=== PATIENT | female | born 1945 | race Hispanic/Latino ===

== ENCOUNTER 2017-09-18 08:52 | Inpatient (IN) | payer MEDICARE, OTHER ==
[~2017-09-18] VITALS: Ht 149.9 cm; Wt 64.5 kg
[~2017-09-18 08:52] MED LIST: ASPI-1005 PO; ATOR20TA65 PO; CALC600T12 PO; CARV3.1262 PO; DARI15TA7 PO; DULO30CA51 PO; FURO20TA6 PO; IBAN150T8 PO; LISI-613 PO; PANT40TA25 PO; PREG100C PO; TYL3 PO
[2017-09-18 09:43] LABS: BASOPHILS % (AUTO) 0.9 % (0.0-5.0); EOSINOPHILS % (AUTO) 2.5 % (0.0-8.0); HEMATOCRIT 34.1 % (36-48); LYMPHOCYTES % (AUTO) 18.8 % (21.0-51.0); MEAN CORPUSCULAR HEMOGLOBIN 30.6 pg (27.0-33.0); MEAN CORPUSCULAR HGB CONC 34.1 g/dL (32.0-36.0); MEAN CORPUSCULAR VOLUME 89.7 fL (79-99); MONOCYTES % (AUTO) 9.2 % (3.0-13.0); NEUTROPHILS % (AUTO) 68.6 % (40.0-77.0); PLATELET COUNT (AUTO) 436 K/uL (130-400); RED CELL DISTRIBUTION WIDTH 14.9 % (11.0-15.5)
[2017-09-18 09:57] LABS: CREATININE 0.8 mg/dL (0.5-1.5); POTASSIUM 3.5 mmol/L (3.5-5.1)
[2017-09-18 10:01] LABS: INR 0.99 (0.85-1.15); PARTIAL THROMBOPLASTIN TIME 30.8 SEC (26.3-35.5); PROTHROMBIN TIME 10.4 SEC (9.6-11.6)
[2017-09-18 10:15] LABS: APPEARANCE,URINE Clear (CLEAR); BILIRUBIN,URINE Negative (NEGATIVE); COLOR,URINE Yellow (YELLOW); GLUCOSE, URINE (UA) Negative (NEGATIVE); KETONES,URINE Negative (NEGATIVE); LEUKOCYTE ESTERASE ,URINE Negative (NEGATIVE); NITRATE,URINE Negative (NEGATIVE); OCCULT BLOOD,URINE Negative (NEGATIVE); PH,URINE 5.5 (5.0-8.0); PROTEIN,URINE Negative (NEGATIVE)
[2017-09-18] MEDS ORDERED: LACTULOSE 20 GM/30 ML UDCUP PO PRN (11:45)
[2017-09-18] MEDS ORDERED: MAG HYDROX/AL HYDROX/SIMETH ES 30 ML SUSP UDCUP PO PRN (11:45)
[2017-09-18] MEDS ORDERED: GUAIFENESIN-DM 200/20 MG 10 ML PO PRN (11:45)
[2017-09-18] MEDS ORDERED: ACETAMINOPHEN 325 MG TAB PO PRN (11:45)
[2017-09-18] MEDS ORDERED: ONDANSETRON HCL 4 MG/2 ML VIAL IV PRN (11:45)
[2017-09-18] MEDS ORDERED: FUROSEMIDE 10 MG/ML 4ML VIAL IV SCH (11:45)
[2017-09-18] MEDS ORDERED: ACETAMINOPHEN-CODEINE 300/30MG TAB PO PRN (11:45)
[2017-09-18] MEDS: LEVOFLOXACIN 500 MG/D5W 100 ML 100 ML IV SCH (11:45)
[2017-09-18] MEDS ORDERED: ACETAMINOPHEN-CODEINE 300/30MG TAB ONE (12:25)
[2017-09-18] MEDS ORDERED: LEVOFLOXACIN 500 MG/D5W 100 ML 100 ML ONE (12:25)
[2017-09-18] MEDS ORDERED: FUROSEMIDE 10 MG/ML 4ML VIAL ONE (12:25)
[2017-09-18] MEDS ORDERED: IPRATROPIUM/ALBUTEROL SULFATE 3 ML SOLUTION IH ONE (13:08)
[2017-09-18] MEDS: IPRATROPIUM/ALBUTEROL SULFATE 3 ML SOLUTION IH SCH ×3 (13:12→23:47)
[2017-09-18 17:08] VITALS: BP 117/45
[2017-09-18 17:29] LABS: SPECIMENTYPE,BODY FLUID PLEURAL
[2017-09-18 17:30] LABS: APPEARANCE BODY FLUID SLIGHTLY CLOUDY (CLEAR); BODY FLUID RBC 2775 /cu. mm.; BODY FLUID WBC 1145 /cu. mm.; COLOR,BODY FLUID DARK YELLOW (LT YELLOW); TOTAL VOLUME,BODY FLUID 1300 mL
[2017-09-18 17:33] LABS: BF LYMPHOCYTE 68 %
[2017-09-18 22:46] VITALS: BP 126/60
[2017-09-18 23:59] VITALS: BP 124/59
[2017-09-19] MEDS: FAMOTIDINE/PF 20 MG/2 ML VIAL IV SCH ×3 (00:05→22:01)
[2017-09-19] MEDS: ACETAMINOPHEN 325 MG TAB PO PRN ×2 (00:05→17:43)
[2017-09-19] MEDS ORDERED: POTASSIUM CHLORIDE 20MEQ/100ML 100 ML IV PRN (00:30)
[2017-09-19] MEDS ORDERED: POTASSIUM CHLORIDE 10% ELIXIR 20 MEQ/15 ML UDCUP PO PRN (00:30)
[2017-09-19] MEDS ORDERED: LIDOCAINE HCL-MPF 1% 2ML VIAL IVP PRN (00:30)
[2017-09-19] MEDS ORDERED: POTASSIUM CHLORIDE 10 MEQ/TAB.SA PO ONE ×6 (00:31→06:02)
[2017-09-19 03:56] VITALS: BP 107/64
[2017-09-19 05:41] LABS: HEMATOCRIT 33.7 % (36-48); MEAN CORPUSCULAR HEMOGLOBIN 30.2 pg (27.0-33.0); MEAN CORPUSCULAR HGB CONC 33.6 g/dL (32.0-36.0); MEAN CORPUSCULAR VOLUME 89.8 fL (79-99); PLATELET COUNT (AUTO) 417 K/uL (130-400); RED BLOOD CELL COUNT(AUTO) 3.75 MIL/uL (4.00-5.50); RED CELL DISTRIBUTION WIDTH 14.7 % (11.0-15.5); WHITE BLOOD COUNT (AUTO) 6.4 K/uL (4.8-10.8)
[2017-09-19 05:47] LABS: CREATININE 0.8 mg/dL (0.5-1.5); POTASSIUM 3.8 mmol/L (3.5-5.1)
[2017-09-19 05:57] LABS: B-TYPE NATRIURETIC PEPTIDE 58 pg/mL (0-100)
[2017-09-19] MEDS ORDERED: FUROSEMIDE 10 MG/ML 4ML VIAL IV SCH (06:00)
[2017-09-19 07:00] VITALS: BP 114/65
[2017-09-19] MEDS: IPRATROPIUM/ALBUTEROL SULFATE 3 ML SOLUTION IH SCH ×3 (07:04→19:40)
[2017-09-19] MEDS: CALCIUM CARBONATE 500 MG TABLET PO SCH (10:18)
[2017-09-19] MEDS: ASPIRIN 81MG TAB.CHEW PO SCH (10:18)
[2017-09-19] MEDS: LISINOPRIL 20 MG TABLET PO SCH (10:19)
[2017-09-19] MEDS: DULOXETINE HCL 30 MG CAP PO SCH (10:19)
[2017-09-19] MEDS: POTASSIUM CHLORIDE 20 MEQ ERTAB PO PRN ×2 (10:19→16:29)
[2017-09-19] MEDS: CARVEDILOL 3.125 MG TABLET PO SCH (10:19)
[2017-09-19 11:00] VITALS: BP 126/58
[2017-09-19] MEDS: LEVOFLOXACIN 500 MG/D5W 100 ML 100 ML IV SCH (12:06)
[2017-09-19 16:00] VITALS: BP 91/56
[2017-09-19] MEDS: FUROSEMIDE 10 MG/ML 2ML VIAL IVP SCH (17:36)
[2017-09-19 19:39] VITALS: BP 99/54
[2017-09-19] MEDS: ATORVASTATIN CALCIUM 20 MG TABLET PO SCH (22:02)
[2017-09-19] MEDS: PREGABALIN 100 MG CAPSULE PO SCH (22:02)
[2017-09-19 23:54] VITALS: BP 101/54
[2017-09-20] MEDS: CARVEDILOL 3.125 MG TABLET PO SCH ×3 (00:06→23:31)
[2017-09-20] MEDS: IPRATROPIUM/ALBUTEROL SULFATE 3 ML SOLUTION IH SCH ×4 (01:31→19:01)
[2017-09-20 03:47] VITALS: BP 134/59
[2017-09-20 04:16] LABS: HEMATOCRIT 35.5 % (36-48); MEAN CORPUSCULAR HEMOGLOBIN 30.1 pg (27.0-33.0); MEAN CORPUSCULAR HGB CONC 33.4 g/dL (32.0-36.0); MEAN CORPUSCULAR VOLUME 90.4 fL (79-99); PLATELET COUNT (AUTO) 502 K/uL (130-400); RED BLOOD CELL COUNT(AUTO) 3.92 MIL/uL (4.00-5.50); RED CELL DISTRIBUTION WIDTH 15.2 % (11.0-15.5); WHITE BLOOD COUNT (AUTO) 6.8 K/uL (4.8-10.8)
[2017-09-20 04:27] LABS: CREATININE 0.9 mg/dL (0.5-1.5); POTASSIUM 4.4 mmol/L (3.5-5.1)
[2017-09-20] MEDS: FUROSEMIDE 10 MG/ML 2ML VIAL IVP SCH ×2 (06:23→16:48)
[2017-09-20 07:00] VITALS: BP 124/57
[2017-09-20] MEDS: DULOXETINE HCL 30 MG CAP PO SCH ×2 (09:43→21:00)
[2017-09-20] MEDS: FAMOTIDINE/PF 20 MG/2 ML VIAL IV SCH ×2 (09:43→21:26)
[2017-09-20] MEDS: LISINOPRIL 20 MG TABLET PO SCH (09:43)
[2017-09-20] MEDS: ASPIRIN 81MG TAB.CHEW PO SCH (09:43)
[2017-09-20] MEDS: CALCIUM CARBONATE 500 MG TABLET PO SCH (09:43)
[2017-09-20 11:00] VITALS: BP 96/51
[2017-09-20] MEDS: LEVOFLOXACIN 500 MG/D5W 100 ML 100 ML IV SCH (13:17)
[2017-09-20 16:00] VITALS: BP 92/46
[2017-09-20] MEDS ORDERED: TRAM50TA4 PO (18:04)
[2017-09-20] MEDS ORDERED: DULO30CA51 PO (18:07)
[2017-09-20 19:37] VITALS: BP 104/53
[2017-09-20] MEDS: SPIRONOLACTONE 25 MG TAB PO SCH (21:26)
[2017-09-20] MEDS: PREGABALIN 100 MG CAPSULE PO SCH (21:27)
[2017-09-20] MEDS: ATORVASTATIN CALCIUM 20 MG TABLET PO SCH (21:27)
[2017-09-20 22:47] VITALS: BP 105/64
[2017-09-21] MEDS: IPRATROPIUM/ALBUTEROL SULFATE 3 ML SOLUTION IH SCH ×4 (01:01→19:25)
[2017-09-21 04:03] VITALS: BP 116/66
[2017-09-21 04:39] LABS: HEMATOCRIT 36.7 % (36-48); MEAN CORPUSCULAR HEMOGLOBIN 29.2 pg (27.0-33.0); MEAN CORPUSCULAR HGB CONC 32.3 g/dL (32.0-36.0); MEAN CORPUSCULAR VOLUME 90.5 fL (79-99); PLATELET COUNT (AUTO) 541 K/uL (130-400); RED BLOOD CELL COUNT(AUTO) 4.05 MIL/uL (4.00-5.50); RED CELL DISTRIBUTION WIDTH 14.8 % (11.0-15.5); WHITE BLOOD COUNT (AUTO) 8.1 K/uL (4.8-10.8)
[2017-09-21 04:47] LABS: CREATININE 1.2 mg/dL (0.5-1.5)
[2017-09-21] MEDS: FUROSEMIDE 10 MG/ML 2ML VIAL IVP SCH (06:01)
[2017-09-21 07:36] VITALS: BP 111/58
[2017-09-21] MEDS: CARVEDILOL 3.125 MG TABLET PO SCH ×2 (07:54→21:37)
[2017-09-21] MEDS: CALCIUM CARBONATE 500 MG TABLET PO SCH (07:55)
[2017-09-21] MEDS: SPIRONOLACTONE 25 MG TAB PO SCH ×2 (07:55→21:37)
[2017-09-21] MEDS: ASPIRIN 81MG TAB.CHEW PO SCH (07:55)
[2017-09-21] MEDS: FAMOTIDINE/PF 20 MG/2 ML VIAL IV SCH ×2 (09:53→21:36)
[2017-09-21] MEDS: LEVOFLOXACIN 500 MG/D5W 100 ML 100 ML IV SCH (10:05)
[2017-09-21 11:12] VITALS: BP 114/73
[2017-09-21] MEDS ORDERED: FUROSEMIDE 20 MG TABLET PO SCH (13:30)
[2017-09-21 16:18] VITALS: BP 98/51
[2017-09-21 19:35] VITALS: BP 105/57
[2017-09-21] MEDS: PREGABALIN 100 MG CAPSULE PO SCH (21:36)
[2017-09-21] MEDS: DULOXETINE HCL 30 MG CAP PO SCH (21:36)
[2017-09-21] MEDS: ATORVASTATIN CALCIUM 20 MG TABLET PO SCH (21:38)
[2017-09-21 23:33] VITALS: BP 106/59
[2017-09-22] VITALS (7 sets, daily range): BP systolic 105–131; BP diastolic 49–60
[2017-09-22] MEDS: IPRATROPIUM/ALBUTEROL SULFATE 3 ML SOLUTION IH SCH ×4 (00:37→19:04)
[2017-09-22 04:08] LABS: HEMATOCRIT 33.5 % (36-48); MEAN CORPUSCULAR HEMOGLOBIN 29.7 pg (27.0-33.0); MEAN CORPUSCULAR HGB CONC 33.4 g/dL (32.0-36.0); MEAN CORPUSCULAR VOLUME 89.1 fL (79-99); PLATELET COUNT (AUTO) 526 K/uL (130-400); RED BLOOD CELL COUNT(AUTO) 3.76 MIL/uL (4.00-5.50); RED CELL DISTRIBUTION WIDTH 15.4 % (11.0-15.5); WHITE BLOOD COUNT (AUTO) 8.3 K/uL (4.8-10.8)
[2017-09-22 04:22] LABS: CREATININE 0.9 mg/dL (0.5-1.5); POTASSIUM 3.7 mmol/L (3.5-5.1)
[2017-09-22 04:46] LABS: B-TYPE NATRIURETIC PEPTIDE 29 pg/mL (0-100)
[2017-09-22] MEDS: SPIRONOLACTONE 25 MG TAB PO SCH ×2 (07:12→20:42)
[2017-09-22] MEDS: LEVOFLOXACIN 500 MG/D5W 100 ML 100 ML IV SCH (07:13)
[2017-09-22] MEDS: CALCIUM CARBONATE 500 MG TABLET PO SCH (07:13)
[2017-09-22] MEDS: FUROSEMIDE 40 MG TABLET PO SCH (07:13)
[2017-09-22] MEDS: ASPIRIN 81MG TAB.CHEW PO SCH (07:13)
[2017-09-22] MEDS: FAMOTIDINE/PF 20 MG/2 ML VIAL IV SCH ×2 (07:13→20:43)
[2017-09-22] MEDS: CARVEDILOL 3.125 MG TABLET PO SCH ×2 (07:13→20:42)
[2017-09-22] MEDS ORDERED: FUROSEMIDE 20 MG TABLET PO SCH (09:00)
[2017-09-22] MEDS: DULOXETINE HCL 30 MG CAP PO SCH (20:42)
[2017-09-22] MEDS: ATORVASTATIN CALCIUM 20 MG TABLET PO SCH (20:42)
[2017-09-22] MEDS: PREGABALIN 100 MG CAPSULE PO SCH (20:42)
[2017-09-23] MEDS: IPRATROPIUM/ALBUTEROL SULFATE 3 ML SOLUTION IH SCH ×3 (00:44→10:59)
[2017-09-23 03:48] VITALS: BP 99/58
[2017-09-23 04:46] LABS: POTASSIUM 3.7 mmol/L (3.5-5.1)
[2017-09-23] MEDS ORDERED: FURO40TA7 PO (07:20)
[2017-09-23] MEDS ORDERED: POTA8TAB7 PO (07:20)
[2017-09-23 07:40] VITALS: BP 108/46
[2017-09-23] MEDS ORDERED: FAMOTIDINE 20MG TAB 20 MG TAB PO SCH (09:00)
[2017-09-23] MEDS: CARVEDILOL 3.125 MG TABLET PO SCH (09:58)
[2017-09-23] MEDS: CALCIUM CARBONATE 500 MG TABLET PO SCH (09:58)
[2017-09-23] MEDS: SPIRONOLACTONE 25 MG TAB PO SCH (09:59)
[2017-09-23] MEDS: FUROSEMIDE 40 MG TABLET PO SCH (09:59)
[2017-09-23] MEDS: POTASSIUM CHLORIDE 20 MEQ ERTAB PO PRN (09:59)
[2017-09-23] MEDS: ASPIRIN 81MG TAB.CHEW PO SCH (09:59)
[2017-09-23 11:17] VITALS: BP 140/97
[2017-09-23] MEDS: LEVOFLOXACIN 500 MG/D5W 100 ML 100 ML IV SCH (12:10)
[2017-09-23 12:11] VITALS: BP 99/50
== END 2017-09-23 15:49 | disposition home or self-care (01) | DRG 291 ==
LOC: EDH 08:52 → EDHIP 11:31 → 2AH 22:31
PROVIDERS: ADMIT Family Medicine; ATTEND Family Medicine
PROC: 0W9B3ZZ Drainage of Left Pleural Cavity, Percutaneous Approach (ICD-10-PCS; principal; 2017-09-18)
PROC: 0W9B30Z Drainage of Left Pleural Cavity with Drainage Device, Percutaneous Approach (ICD-10-PCS; 2017-09-19)
DX: I11.0 Hypertensive heart disease with heart failure (principal); J81.0 Acute pulmonary edema; R06.03 Acute respiratory distress; J90 Pleural effusion, not elsewhere classified; D62 Acute posthemorrhagic anemia; I50.23 Acute on chronic systolic (congestive) heart failure; Z95.1 Presence of aortocoronary bypass graft; K21.9 Gastro-esophageal reflux disease without esophagitis; M79.7 Fibromyalgia; E78.5 Hyperlipidemia, unspecified; I25.10 Atherosclerotic heart disease of native coronary artery without angina pectoris; I10 Essential (primary) hypertension; Z88.0 Allergy status to penicillin; Z79.899 Other long term (current) drug therapy
CPT/HCPCS: 32551; 32555; 36415; 71045; 71046; 71250; 80048; 81003; 82945; 83615; 83880; 83986; 84157; 84484; 85025; 85027; 85610; 85730; 87071; 87205; 89051; 93005; 93306; 94640; 94664; J1940; J1956; J3490

== ENCOUNTER 2017-09-25 21:59 | Inpatient (IN) | payer MEDICARE, OTHER ==
[~2017-09-25] VITALS: Ht 149.9 cm; Wt 59.6 kg
[~2017-09-25 21:59] MED LIST changes: -FURO20TA6 PO; +FURO40TA7 PO; +POTA8TAB7 PO; +TRAM50TA4 PO
[2017-09-25 23:06] LABS: BILIRUBIN,URINE Negative (NEGATIVE); COLOR,URINE Yellow (YELLOW); GLUCOSE, URINE (UA) Negative (NEGATIVE); KETONES,URINE Negative (NEGATIVE); LEUKOCYTE ESTERASE ,URINE Negative (NEGATIVE); NITRATE,URINE Negative (NEGATIVE); OCCULT BLOOD,URINE Negative (NEGATIVE); PROTEIN,URINE Negative (NEGATIVE); UROBILINOGEN,URINE 0.2 mg/dL (0.2-1.0)
[2017-09-25 23:10] LABS: APPEARANCE,URINE CLEAR (CLEAR)
[2017-09-25 23:12] LABS: CREATININE 1.3 mg/dL (0.5-1.5); POTASSIUM 4.3 mmol/L (3.5-5.1)
[2017-09-25 23:13] LABS: BASOPHILS % (AUTO) 1.3 % (0.0-5.0); EOSINOPHILS % (AUTO) 1.5 % (0.0-8.0); HEMATOCRIT 36.2 % (36-48); LYMPHOCYTES % (AUTO) 43.8 % (21.0-51.0); MEAN CORPUSCULAR HEMOGLOBIN 29.5 pg (27.0-33.0); MEAN CORPUSCULAR HGB CONC 33.7 g/dL (32.0-36.0); MEAN CORPUSCULAR VOLUME 87.8 fL (79-99); MONOCYTES % (AUTO) 7.7 % (3.0-13.0); NEUTROPHILS % (AUTO) 45.7 % (40.0-77.0); PLATELET COUNT (AUTO) 555 K/uL (130-400); RED BLOOD CELL COUNT(AUTO) 4.12 MIL/uL (4.00-5.50); RED CELL DISTRIBUTION WIDTH 15.8 % (11.0-15.5); WHITE BLOOD COUNT (AUTO) 8.4 K/uL (4.8-10.8)
[2017-09-26] MEDS ORDERED: CEFTRIAXONE SODIUM 1 GM ONE (00:06)
[2017-09-26] MEDS ORDERED: ACETAMINOPHEN 325 MG TAB ONE (00:06)
[2017-09-26] MEDS ORDERED: DEXTROSE 50%-WATER 50 ML DISP.SYRIN IV PRN (02:45)
[2017-09-26] MEDS ORDERED: LIDOCAINE HCL-MPF 1% 2ML VIAL IVP PRN (02:45)
[2017-09-26] MEDS ORDERED: POTASSIUM CHLORIDE 20MEQ/100ML 100 ML IV PRN (02:45)
[2017-09-26] MEDS ORDERED: MORPHINE SULFATE 2 MG/ML 1ML SYG IVP PRN ×2 (02:45)
[2017-09-26] MEDS ORDERED: LACTULOSE 20 GM/30 ML UDCUP PO PRN (02:45)
[2017-09-26] MEDS ORDERED: HYDRALAZINE HCL 20 MG/ML VIAL IV PRN (02:45)
[2017-09-26] MEDS ORDERED: ONDANSETRON HCL 4 MG/2 ML VIAL IVP PRN (02:45)
[2017-09-26] MEDS ORDERED: GLUCAGON 1MG KIT 1 MG ML IM PRN (02:45)
[2017-09-26] MEDS ORDERED: ACETAMINOPHEN 325 MG TAB PO PRN (02:45)
[2017-09-26] MEDS: AZITHROMYCIN 500MG+NS 250ML 250 ML IV SCH (03:00)
[2017-09-26 04:09] LABS: HEMATOCRIT 35.2 % (36-48); MEAN CORPUSCULAR HEMOGLOBIN 29.6 pg (27.0-33.0); MEAN CORPUSCULAR HGB CONC 33.4 g/dL (32.0-36.0); MEAN CORPUSCULAR VOLUME 88.6 fL (79-99); PLATELET COUNT (AUTO) 529 K/uL (130-400); RED BLOOD CELL COUNT(AUTO) 3.97 MIL/uL (4.00-5.50); RED CELL DISTRIBUTION WIDTH 15.8 % (11.0-15.5); WHITE BLOOD COUNT (AUTO) 8.2 K/uL (4.8-10.8)
[2017-09-26 04:19] LABS: CREATININE 1.2 mg/dL (0.5-1.5); POTASSIUM 3.6 mmol/L (3.5-5.1)
[2017-09-26 04:46] LABS: CREATINE KINASE MB < 0.5 ng/mL (0.5-3.6); CREATINE KINASE, TOTAL 27 U/L (21-232); MYOGLOBIN 37 ng/mL (10-92); TROPONIN I < 0.04 ng/mL (0.00-0.06)
[2017-09-26 05:09] LABS: B-TYPE NATRIURETIC PEPTIDE 30 pg/mL (0-100)
[2017-09-26] MEDS ORDERED: IPRATROPIUM/ALBUTEROL SULFATE 3 ML SOLUTION IH ONE ×2 (06:46→10:26)
[2017-09-26] MEDS: IPRATROPIUM/ALBUTEROL SULFATE 3 ML SOLUTION IH SCH ×4 (06:48→23:10)
[2017-09-26] MEDS ORDERED: INSULIN HUMULIN R 100 UNIT/ML 3ML SQ SCH (07:30)
[2017-09-26] MEDS ORDERED: AZITHROMYCIN 500MG+NS 250ML 250 ML IV ONE (08:26)
[2017-09-26] MEDS ORDERED: FAMOTIDINE 20MG TAB 20 MG TAB ONE (08:27)
[2017-09-26] MEDS: FAMOTIDINE 20MG TAB 20 MG TAB PO SCH ×2 (09:00→20:03)
[2017-09-26 12:30] VITALS: BP 97/56
[2017-09-26 16:10] VITALS: BP 101/45
[2017-09-26] MEDS: ATORVASTATIN CALCIUM 20 MG TABLET PO SCH (20:03)
[2017-09-26] MEDS: CARVEDILOL 3.125 MG TABLET PO SCH (20:04)
[2017-09-26] MEDS: DULOXETINE HCL 30 MG CAP PO SCH (20:04)
[2017-09-26 20:05] VITALS: BP 113/64
[2017-09-26 23:43] VITALS: BP 121/61
[2017-09-27] MEDS ORDERED: CEFTRIAXONE SODIUM 1 GM ONE (00:13)
[2017-09-27] MEDS: CEFTRIAXONE 1GM/D5W 50ML 50 ML IV SCH (00:13)
[2017-09-27] MEDS: AZITHROMYCIN 500MG+NS 250ML 250 ML IV SCH (03:04)
[2017-09-27 03:38] VITALS: BP 121/64
[2017-09-27 04:20] LABS: HEMATOCRIT 33.9 % (36-48); MEAN CORPUSCULAR HEMOGLOBIN 29.5 pg (27.0-33.0); MEAN CORPUSCULAR HGB CONC 33.2 g/dL (32.0-36.0); MEAN CORPUSCULAR VOLUME 88.8 fL (79-99); PLATELET COUNT (AUTO) 496 K/uL (130-400); RED BLOOD CELL COUNT(AUTO) 3.82 MIL/uL (4.00-5.50); RED CELL DISTRIBUTION WIDTH 15.8 % (11.0-15.5); WHITE BLOOD COUNT (AUTO) 6.6 K/uL (4.8-10.8)
[2017-09-27 04:34] LABS: CREATININE 0.9 mg/dL (0.5-1.5); POTASSIUM 4.3 mmol/L (3.5-5.1)
[2017-09-27] MEDS: IPRATROPIUM/ALBUTEROL SULFATE 3 ML SOLUTION IH SCH ×3 (06:12→18:29)
[2017-09-27 07:18] VITALS: BP 108/47
[2017-09-27] MEDS: FUROSEMIDE 40 MG TABLET PO SCH (08:42)
[2017-09-27] MEDS: FAMOTIDINE 20MG TAB 20 MG TAB PO SCH ×2 (08:42→21:29)
[2017-09-27] MEDS: ASPIRIN 81MG TAB.CHEW PO SCH (08:42)
[2017-09-27] MEDS: CARVEDILOL 3.125 MG TABLET PO SCH ×2 (08:43→21:29)
[2017-09-27] MEDS ORDERED: NON-FORMULARY MEDICATION 1 EACH (Potassium Chloride 8 MEQ) PO SCH (09:00)
[2017-09-27] MEDS: ENOXAPARIN SODIUM 40 MG/0.4 ML SYRINGE SQ SCH (09:49)
[2017-09-27 11:31] VITALS: BP 98/43
[2017-09-27] MEDS: CEFTRIAXONE SODIUM 1 GM IVP SCH (13:04)
[2017-09-27 16:22] VITALS: BP 109/47
[2017-09-27 20:11] VITALS: BP 101/64
[2017-09-27] MEDS: DULOXETINE HCL 30 MG CAP PO SCH (21:29)
[2017-09-27] MEDS: ATORVASTATIN CALCIUM 20 MG TABLET PO SCH (21:29)
[2017-09-27 23:09] VITALS: BP 120/58
[2017-09-28] MEDS: IPRATROPIUM/ALBUTEROL SULFATE 3 ML SOLUTION IH SCH ×4 (00:23→18:58)
[2017-09-28] MEDS: CEFTRIAXONE 1GM/D5W 50ML 50 ML IV SCH ×2 (00:24→23:45)
[2017-09-28] MEDS: AZITHROMYCIN 500MG+NS 250ML 250 ML IV SCH (03:06)
[2017-09-28 03:46] VITALS: BP 120/58
[2017-09-28 04:04] LABS: HEMATOCRIT 35.7 % (36-48); MEAN CORPUSCULAR HEMOGLOBIN 29.5 pg (27.0-33.0); MEAN CORPUSCULAR HGB CONC 33.2 g/dL (32.0-36.0); MEAN CORPUSCULAR VOLUME 88.9 fL (79-99); PLATELET COUNT (AUTO) 508 K/uL (130-400); RED BLOOD CELL COUNT(AUTO) 4.02 MIL/uL (4.00-5.50); RED CELL DISTRIBUTION WIDTH 15.3 % (11.0-15.5); WHITE BLOOD COUNT (AUTO) 7.4 K/uL (4.8-10.8)
[2017-09-28 04:08] LABS: CREATININE 0.9 mg/dL (0.5-1.5); POTASSIUM 3.2 mmol/L (3.5-5.1)
[2017-09-28] MEDS: POTASSIUM CHLORIDE 10% ELIXIR 20 MEQ/15 ML UDCUP PO PRN ×3 (05:30→12:10)
[2017-09-28 07:25] VITALS: BP 127/61
[2017-09-28] MEDS: FAMOTIDINE 20MG TAB 20 MG TAB PO SCH ×2 (09:07→20:36)
[2017-09-28] MEDS: FUROSEMIDE 40 MG TABLET PO SCH (09:07)
[2017-09-28] MEDS: ASPIRIN 81MG TAB.CHEW PO SCH (09:07)
[2017-09-28] MEDS: CARVEDILOL 3.125 MG TABLET PO SCH ×2 (09:07→20:37)
[2017-09-28] MEDS: ENOXAPARIN SODIUM 40 MG/0.4 ML SYRINGE SQ SCH (09:08)
[2017-09-28 11:21] VITALS: BP 108/65
[2017-09-28] MEDS: CEFTRIAXONE SODIUM 1 GM IVP SCH (12:10)
[2017-09-28 16:19] VITALS: BP 129/68
[2017-09-28 19:29] VITALS: BP 122/43
[2017-09-28] MEDS: DULOXETINE HCL 30 MG CAP PO SCH (20:36)
[2017-09-28] MEDS: ATORVASTATIN CALCIUM 20 MG TABLET PO SCH (20:36)
[2017-09-28 23:16] VITALS: BP 155/58
[2017-09-29] MEDS: IPRATROPIUM/ALBUTEROL SULFATE 3 ML SOLUTION IH SCH ×2 (01:32→05:57)
[2017-09-29] MEDS: AZITHROMYCIN 500MG+NS 250ML 250 ML IV SCH (02:41)
[2017-09-29 04:02] VITALS: BP 126/72
[2017-09-29 04:04] LABS: CREATININE 0.8 mg/dL (0.5-1.5); POTASSIUM 3.3 mmol/L (3.5-5.1)
[2017-09-29] MEDS: POTASSIUM CHLORIDE 10% ELIXIR 20 MEQ/15 ML UDCUP PO PRN (05:31)
[2017-09-29] MEDS ORDERED: AMOX-426 PO (07:50)
[2017-09-29] MEDS ORDERED: ALBUHFA IH (07:50)
[2017-09-29 08:01] VITALS: BP 124/59
[2017-09-29] MEDS: ASPIRIN 81MG TAB.CHEW PO SCH (09:32)
[2017-09-29] MEDS: FAMOTIDINE 20MG TAB 20 MG TAB PO SCH (09:32)
[2017-09-29] MEDS: FUROSEMIDE 40 MG TABLET PO SCH (09:32)
[2017-09-29] MEDS: CARVEDILOL 3.125 MG TABLET PO SCH (09:33)
[2017-09-29] MEDS: ENOXAPARIN SODIUM 40 MG/0.4 ML SYRINGE SQ SCH (09:34)
[2017-09-29 11:09] VITALS: BP 139/67
== END 2017-09-29 12:00 | disposition home or self-care (01) | DRG 194 ==
LOC: EDH 21:59 → EDHIP 09-26 01:02 → OBSVTOIN 09-26 01:02 → 2AH 09-26 12:13
PROVIDERS: ADMIT Internal Medicine; ATTEND Internal Medicine
DX: J18.9 Pneumonia, unspecified organism (principal); I50.32 Chronic diastolic (congestive) heart failure; I11.0 Hypertensive heart disease with heart failure; M79.7 Fibromyalgia; I25.10 Atherosclerotic heart disease of native coronary artery without angina pectoris; F32.9 Major depressive disorder, single episode, unspecified; M19.90 Unspecified osteoarthritis, unspecified site; Z79.82 Long term (current) use of aspirin; Z90.710 Acquired absence of both cervix and uterus; Z95.1 Presence of aortocoronary bypass graft; Z90.49 Acquired absence of other specified parts of digestive tract
CPT/HCPCS: 36415; 70450; 71045; 71046; 80048; 81003; 82550; 82553; 82948; 83605; 83874; 83880; 84484; 85025; 85027; 87040; 87804; 93005; 94640; 94664; A4218; J0456; J0696; J1650

== ENCOUNTER 2018-10-25 10:22 | Day surgery (SDC) | payer MEDICARE, OTHER ==
[2018-10-25] VITALS (19 sets, daily range): BP systolic 113–204; BP diastolic 53–90
[~2018-10-25] VITALS: Ht 147.3 cm; Wt 69.9 kg
[~2018-10-25 10:22] MED LIST changes: +ALBUHFA IH; +AMOX-426 PO; +DARI15TA PO; -DARI15TA7 PO; -TYL3 PO
[2018-10-25 11:01] LABS: BASOPHILS % (AUTO) 0.8 % (0.0-5.0); EOSINOPHILS % (AUTO) 3.4 % (0.0-8.0); HEMATOCRIT 43.2 % (36-48); LYMPHOCYTES % (AUTO) 34.8 % (21.0-51.0); MEAN CORPUSCULAR HEMOGLOBIN 29.9 pg (27.0-33.0); MEAN CORPUSCULAR HGB CONC 32.5 g/dL (32.0-36.0); MEAN CORPUSCULAR VOLUME 92.1 fL (79-99); MONOCYTES % (AUTO) 4.9 % (3.0-13.0); NEUTROPHILS % (AUTO) 56.1 % (40.0-77.0); PLATELET COUNT (AUTO) 296 K/uL (130-400); RED BLOOD CELL COUNT(AUTO) 4.69 MIL/uL (4.00-5.50); RED CELL DISTRIBUTION WIDTH 14.3 % (11.0-15.5); WHITE BLOOD COUNT (AUTO) 6.9 K/uL (4.8-10.8)
[2018-10-25 11:13] LABS: ALBUMIN 3.4 g/dL (3.5-5.0); BILIRUBIN,TOTAL 0.7 mg/dL (0.2-1.0); POTASSIUM 4.6 mmol/L (3.5-5.1); TOTAL PROTEIN, SERUM 7.5 g/dL (6.0-8.3)
[2018-10-25 11:57] LABS: INR 0.92 (0.85-1.15); PROTHROMBIN TIME 9.7 SEC (9.6-11.6)
[2018-10-25] MEDS ORDERED: GLUC1TAB21 PO (12:06)
[2018-10-25] MEDS ORDERED: CALCIUM+D3 PO (12:06)
[2018-10-25] MEDS ORDERED: FURO20TA6 PO (12:06)
[2018-10-25] MEDS ORDERED: DARI15TA PO (12:06)
[2018-10-25] MEDS ORDERED: TRAM50TA4 PO (12:06)
[2018-10-25] MEDS ORDERED: LORA10TA7 PO (12:06)
[2018-10-25] MEDS ORDERED: CARV12.511 PO (12:06)
[2018-10-25 12:26] LABS: PARTIAL THROMBOPLASTIN TIME 27.9 SEC (26.3-35.5)
[2018-10-25] MEDS ORDERED: CEFAZOLIN SODIUM 1 GM VIAL ONE (12:38)
[2018-10-25] MEDS ORDERED: SODIUM CHLORIDE 0.9% 1000ML 1,000 ML IV ONE (12:38)
--- NOTE | 2018-10-25 13:08 | NUR ---
PUPILS bilateral lens implants for cataracts Addendum: 10/25/18 at 1315 by ANABELL SANTO RN RN Amended: Links added.
[2018-10-25] MEDS ORDERED: TRIAMCINOLONE ACETONIDE 40 MG/ML 1ML VIAL ONE ×2 (14:13→14:55)
[2018-10-25] MEDS ORDERED: LIDOCAINE HCL 1% MDV 50ML VIAL ONE (14:14)
[2018-10-25] MEDS ORDERED: ONDANSETRON HCL 4 MG/2 ML VIAL ONE ×2 (14:47→15:53)
[2018-10-25] MEDS ORDERED: DEXAMETHASONE SOD PHOSPHATE 10MG/ML 1ML VIAL ONE (14:47)
[2018-10-25] MEDS ORDERED: LIDOCAINE PF 2% 5ML ABBOJECT ONE (14:47)
[2018-10-25] MEDS ORDERED: PROPOFOL 10 MG/ML 20ML VIAL IV ONE (14:48)
[2018-10-25] MEDS ORDERED: FENTANYL CITRATE PF 50 MCG/1 ML 2ML VIAL ONE (14:48)
[2018-10-25] MEDS ORDERED: MIDAZOLAM HCL 1 MG/ML 2ML VIAL ONE (14:48)
[2018-10-25] MEDS ORDERED: EPHEDRINE SULFATE 50 MG/ML AMPULE ONE (14:55)
[2018-10-25] MEDS ORDERED: BUPIVACAINE/PF 0.25% 30ML VIAL IJ ONE (14:56)
[2018-10-25] MEDS ORDERED: KETAMINE 50MG/ML SYRINGE 50 MG/ML DISP.SYRIN IV ONE (15:08)
[2018-10-25] MEDS ORDERED: MORPHINE SULFATE 4 MG/1ML SYG ONE (15:42)
[2018-10-25] MEDS ORDERED: MEPERIDINE-PF 25 MG/ML SYG ONE (15:53)
== END 2018-10-25 18:25 | disposition home or self-care (01) ==
LOC: DAH 10:22 → UNDODISIN 18:25 → DAH 18:25 → EDSTATUS 10-26 09:00
PROVIDERS: ATTEND Thoracic Surgery (Cardiothoracic Vascular Surgery)
DX: T85.698A Other mechanical complication of other specified internal prosthetic devices, implants and grafts, initial encounter (principal); I10 Essential (primary) hypertension; I25.5 Ischemic cardiomyopathy; I25.10 Atherosclerotic heart disease of native coronary artery without angina pectoris; J90 Pleural effusion, not elsewhere classified; Z79.899 Other long term (current) drug therapy; Z95.1 Presence of aortocoronary bypass graft; Z68.32 Body mass index [BMI] 32.0-32.9, adult; E78.5 Hyperlipidemia, unspecified; K21.9 Gastro-esophageal reflux disease without esophagitis; I21.3 ST elevation (STEMI) myocardial infarction of unspecified site; Z98.890 Other specified postprocedural states; Z90.710 Acquired absence of both cervix and uterus; Z82.49 Family history of ischemic heart disease and other diseases of the circulatory system
CPT/HCPCS: 20680; 36415; 71046; 80053; 85025; 85610; 85730; 86850; 86900; 86901; 88300; 88304; 93005; A4218; A6219; C1713 ×2; J0690; J1100; J2001; J2175; J2250; J2270; J2405 ×2; J2704; J3010; J3301 ×2; J3490 ×3; J7030; J7120; G0378

== ENCOUNTER 2021-10-17 11:22 | Emergency (ER) | payer MEDICARE, OTHER ==
[~2021-10-17] VITALS: Ht 147.3 cm; Wt 66.7 kg
[~2021-10-17 11:22] MED LIST changes: -ALBUHFA IH; -AMOX-426 PO; -ATOR20TA65 PO; -CALC600T12 PO; +CALCIUM+D3 PO; +CARV12.511 PO; -CARV3.1262 PO; -DARI15TA PO; +DARI15TA16 PO; -DULO30CA51 PO; +DULO30CA52 PO; +FURO20TA6 PO; -FURO40TA7 PO; +GLUC1TAB21 PO; -IBAN150T8 PO; -LISI-613 PO; +LISI20TA24 PO; +LORA10TA7 PO; -PANT40TA25 PO; +PANT40TA54 PO; -POTA8TAB7 PO; -PREG100C PO; +PREG75 PO; -TRAM50TA4 PO
[2021-10-17 12:53] LABS: BASOPHILS % (AUTO) 0.4 % (0.0-5.0); EOSINOPHILS % (AUTO) 0.7 % (0.0-8.0); HEMATOCRIT 42.1 % (36-48); LYMPHOCYTES % (AUTO) 15.2 % (21.0-51.0); MEAN CORPUSCULAR HEMOGLOBIN 30.4 pg (27.0-33.0); MEAN CORPUSCULAR HGB CONC 33.3 g/dL (32.0-36.0); MEAN CORPUSCULAR VOLUME 91.5 fL (79-99); MONOCYTES % (AUTO) 5.3 % (3.0-13.0); NEUTROPHILS % (AUTO) 77.4 % (40.0-77.0); PLATELET COUNT (AUTO) 411 K/uL (130-400); RED CELL DISTRIBUTION WIDTH 13.4 % (11.0-15.5); WHITE BLOOD COUNT (AUTO) 9.9 K/uL (4.8-10.8)
[2021-10-17] MEDS ORDERED: 0.9% NACL 500ML IV.SOLN 500 ML IV ONE (13:00)
[2021-10-17 13:07] LABS: ALBUMIN 2.9 g/dL (3.5-5.0); BILIRUBIN,TOTAL 1.4 mg/dL (0.2-1.0); CREATININE 1.3 mg/dL (0.5-1.5); POTASSIUM 3.3 mmol/L (3.5-5.1); TOTAL PROTEIN, SERUM 8.5 g/dL (6.0-8.3)
[2021-10-17 13:30] LABS: APPEARANCE,URINE CLOUDY (CLEAR); BILIRUBIN,URINE SMALL (NEGATIVE); COLOR,URINE YELLOW (YELLOW); GLUCOSE, URINE (UA) 100 mg/dL (NEGATIVE); KETONES,URINE 15 mg/dL (NEGATIVE); LEUKOCYTE ESTERASE ,URINE SMALL (NEGATIVE); NITRATE,URINE POSITIVE (NEGATIVE); OCCULT BLOOD,URINE TRACE-INTACT (NEGATIVE); PROTEIN,URINE 100 mg/dL (NEGATIVE)
[2021-10-17 13:48] LABS: BACTERIA,URINE Many /HPF (None Seen); RBC,URINE 0-1 /HPF (0-1)
[2021-10-17] MEDS ORDERED: CEFTRIAXONE 1G VIAL IV ONE (15:30)
[2021-10-17 16:12] VITALS: BP 130/54
[2021-10-17] MEDS ORDERED: CEPH500B PO (16:41)
[2021-10-17] MEDS ORDERED: ZINC50TA15 PO (16:41)
[2021-10-17] MEDS ORDERED: ASCO-360 PO (16:41)
[2021-10-17] MEDS ORDERED: ONDA4TAB10 PO (16:42)
== END 2021-10-17 16:50 | disposition home or self-care (01) ==
LOC: EDH 11:22
DX: U07.1 COVID-19 (principal); J12.82 Pneumonia due to coronavirus disease 2019; N39.0 Urinary tract infection, site not specified; M54.2 Cervicalgia; R51.9 Headache, unspecified; I10 Essential (primary) hypertension; E11.9 Type 2 diabetes mellitus without complications; Z98.890 Other specified postprocedural states; Z79.82 Long term (current) use of aspirin; Z79.84 Long term (current) use of oral hypoglycemic drugs; Z79.899 Other long term (current) drug therapy
CPT/HCPCS: 36415; 70450; 71045; 72125; 80053; 81001; 83605; 84484; 85025; 87040 ×2; 87077; 87088; 87186; 87635; 87804 ×2; 93005; 96365; 99285; C9803; J0696; J7040

== ENCOUNTER → 2023-04-27 | Outpatient (CLI) | payer MEDICARE ==
[~2023-04-27] MED LIST changes: -ASPI-1005 PO; +ASPI-1197 PO; +ATOR20TA65 PO; +CALC-190 PO; -CALCIUM+D3 PO; -CARV12.511 PO; +CILO50TA2 PO; -DARI15TA16 PO; -DULO30CA52 PO; -FURO20TA6 PO; +GARL1000 PO; -GLUC1TAB21 PO; +GLUC1TAB22 PO; +LINA5TAB PO; -LISI20TA24 PO; +NIFE-40 PO; +PREG100C55 PO; -PREG75 PO
[2023-04-27 16:28] LABS: BASOPHILS # (AUTO) 0.09 K/uL (0.00-0.20); BASOPHILS % (AUTO) 0.8 % (0.0-5.0); EOSINOPHILS # (AUTO) 0.45 K/uL (0.00-0.70); EOSINOPHILS % (AUTO) 3.9 % (0.0-8.0); IMMATURE GRANULOCYTE ABSOLUTE 0.17 K/uL (0-1); LYMPHOCYTES # (AUTO) 4.6 K/uL (1.0-4.8); LYMPHOCYTES % (AUTO) 40.4 % (21.0-51.0); MEAN CORPUSCULAR HEMOGLOBIN 30.6 pg (27.0-33.0); MEAN CORPUSCULAR HGB CONC 32.2 g/dL (32.0-36.0); MEAN CORPUSCULAR VOLUME 95.1 fL (79-99); MONOCYTES # (AUTO) 0.6 K/uL (0.1-1.0); MONOCYTES % (AUTO) 5.6 % (3.0-13.0); NEUTROPHILS # (AUTO) 5.5 K/uL (1.8-7.7); NEUTROPHILS % (AUTO) 47.8 % (40.0-77.0); PLATELET COUNT (AUTO) 299 K/uL (130-400); RED BLOOD CELL COUNT(AUTO) 4.31 MIL/uL (4.00-5.50); RED CELL DISTRIBUTION WIDTH 12.6 % (11.0-15.5); WHITE BLOOD COUNT (AUTO) 11.5 K/uL (4.8-10.8)
[2023-04-27 16:58] LABS: ALBUMIN 3.2 g/dL (3.5-5.0); BILIRUBIN,TOTAL 0.6 mg/dL (0.2-1.0); CREATININE 1.1 mg/dL (0.5-1.5); POTASSIUM 4.1 mmol/L (3.5-5.1); TOTAL PROTEIN, SERUM 7.5 g/dL (6.0-8.3)
== END | disposition home or self-care (01) ==
LOC: LAB 15:57
PROVIDERS: ATTEND Internal Medicine Cardiovascular Disease
DX: I10 Essential (primary) hypertension (principal); E78.5 Hyperlipidemia, unspecified
CPT/HCPCS: 36415; 80053; 80061; 85025

== ENCOUNTER → 2024-06-02 | Outpatient (CLI) | payer MEDICARE ==
[~2024-06-02] MED LIST changes: -GARL1000 PO; +GARL10002 PO; -PREG100C55 PO; +PREG100C56 PO
== END | disposition home or self-care (01) ==
LOC: LAB 14:27
PROVIDERS: ATTEND Nurse Practitioner Acute Care
DX: I10 Essential (primary) hypertension (principal)
CPT/HCPCS: 36415; 83880

== ENCOUNTER → 2024-06-03 | Outpatient (CLI) | payer MEDICARE ==
[~2024-06-03] MED LIST changes: +REGADENOSON 0.4 MG/5 ML PF SYG IVP ONE
[2024-06-03] MEDS: REGADENOSON 0.4 MG/5 ML PF SYG IVP ONE (14:50)
== END | disposition home or self-care (01) ==
LOC: SHCH 08:56
PROVIDERS: ATTEND Internal Medicine Cardiovascular Disease
DX: I25.119 Atherosclerotic heart disease of native coronary artery with unspecified angina pectoris (principal); F41.9 Anxiety disorder, unspecified
CPT/HCPCS: 78452; 93017; J2785; A9500 ×2

== ENCOUNTER 2024-06-29 23:59 | Emergency (ER) | payer MEDICARE ==
[~2024-06-29] VITALS: Ht 147.3 cm; Wt 66.2 kg
[~2024-06-29 23:59] MED LIST changes: -REGADENOSON 0.4 MG/5 ML PF SYG IVP ONE
[2024-06-30 00:01] VITALS: TEMP 98.1
[2024-06-30] MEDS: LACTULOSE 20 GM/30 ML UDCUP PO ONE (00:35)
[2024-06-30] MEDS: BisaCODYL 10 MG SUPP.RECT RC ONE (00:47)
[2024-06-30] MEDS ORDERED: GOLY4L PO (02:01)
[2024-06-30] MEDS ORDERED: HYDR25SU7 PR (02:01)
[2024-06-30 02:39] VITALS: BP 150/76; PULSE 96; RESP 18; O2SAT 97
== END 2024-06-30 02:23 | disposition home or self-care (01) ==
LOC: EDH 23:59
DX: K59.09 Other constipation (principal); K64.4 Residual hemorrhoidal skin tags; M19.90 Unspecified osteoarthritis, unspecified site; I10 Essential (primary) hypertension; M79.7 Fibromyalgia; Z79.02 Long term (current) use of antithrombotics/antiplatelets; Z79.82 Long term (current) use of aspirin; Z79.84 Long term (current) use of oral hypoglycemic drugs; Z79.899 Other long term (current) drug therapy; Z95.1 Presence of aortocoronary bypass graft
CPT/HCPCS: 74018

== ENCOUNTER 2025-03-02 06:34 | Day surgery (SDC) | payer MEDICARE ==
[2025-02-28 10:40] VITALS: BP 146/86; PULSE 68; RESP 18; TEMP 97.2
[2025-02-28 10:43] LABS: BASOPHILS # (AUTO) 0.05 K/uL (0.00-0.20); BASOPHILS % (AUTO) 0.6 % (0.0-5.0); EOSINOPHILS # (AUTO) 0.15 K/uL (0.00-0.70); EOSINOPHILS % (AUTO) 1.9 % (0.0-8.0); HEMATOCRIT 40.6 % (36-48); IMMATURE GRANULOCYTE ABSOLUTE 0.04 K/uL (0-1); LYMPHOCYTES # (AUTO) 3.3 K/uL (1.0-4.8); LYMPHOCYTES % (AUTO) 40.9 % (21.0-51.0); MEAN CORPUSCULAR HEMOGLOBIN 31.5 pg (27.0-33.0); MEAN CORPUSCULAR HGB CONC 33.5 g/dL (32.0-36.0); MONOCYTES # (AUTO) 0.4 K/uL (0.1-1.0); MONOCYTES % (AUTO) 4.7 % (3.0-13.0); NEUTROPHILS # (AUTO) 4.2 K/uL (1.8-7.7); NEUTROPHILS % (AUTO) 51.4 % (40.0-77.0); PLATELET COUNT (AUTO) 291 K/uL (130-400); RED BLOOD CELL COUNT(AUTO) 4.32 MIL/uL (4.00-5.50); RED CELL DISTRIBUTION WIDTH 12.9 % (11.0-15.5); WHITE BLOOD COUNT (AUTO) 8.1 K/uL (4.8-10.8)
[2025-02-28 10:49] LABS: APPEARANCE,URINE CLEAR (CLEAR); BILIRUBIN,URINE NEGATIVE (NEGATIVE); COLOR,URINE LIGHT-YELLOW (YELLOW); GLUCOSE, URINE (UA) NEGATIVE (NEGATIVE); KETONES,URINE NEGATIVE (NEGATIVE); LEUKOCYTE ESTERASE ,URINE NEGATIVE Leu/uL (NEGATIVE); NITRATE,URINE NEGATIVE (NEGATIVE); OCCULT BLOOD,URINE NEGATIVE (NEGATIVE); PROTEIN,URINE NEGATIVE (NEGATIVE); UROBILINOGEN,URINE 0.2 mg/dL (0.2-1.0)
[2025-02-28 10:54] LABS: ADD UA MICROSCOPIC NO
[2025-02-28 10:58] LABS: INR <= 0.93 (0.85-1.15); PROTHROMBIN TIME 9.8 SEC (9.6-11.6)
[2025-02-28 10:59] LABS: PARTIAL THROMBOPLASTIN TIME 25.9 SEC (26.3-35.5)
[2025-02-28 11:23] LABS: CREATININE 1.1 mg/dL (0.5-1.0); POTASSIUM 5.1 mmol/L (3.5-5.1)
--- NOTE | 2025-02-28 13:11 | EKG ---
[facility] Test Date: 2025-02-28 Test Time: 10:26:47 Pat Name: CHE SAMANIEGO Department: [facility] Room: Gender: F Glove Presser: [id number] : 1945 Requested By: SARIAH GAR Order Number: [id number] Reading MD: Zelalem Curtis Measurements Intervals [place] Rate: 59 P: -7 MA: 134 QRS: -7 QRSD: 82 T: 106 QT: 400 QTc: 396 Interpretive Statements Sinus bradycardia T wave abnormality, consider lateral ischemia Compared to ECG 07/03/2022 03:25:04 T-wave abnormality now present Possible ischemia now present Sinus tachycardia no longer present ST (T wave) deviation no longer present Electronically Signed On 02-28-2025 18:15:21 CDT by Zelalem Curtis Please click the below link to view image of tracing.
--- NOTE | 2025-02-28 16:31 | HMCIMG ---
CHEST 1VW HISTORY: Preop COMPARISON: 07/07/2000 FINDINGS: A frontal projection of the chest was obtained. No acute pulmonary infiltrates is seen. The heart is enlarged. Degenerative changes are seen. Aortic calcifications are seen. IMPRESSION: 1. No acute pulmonary infiltrate is seen.
[2025-03-02] VITALS (12 sets, daily range): BP systolic 93–132; BP diastolic 29–67; PULSE 54–71; RESP 10–17; TEMP 96.8–97.5
[~2025-03-02] VITALS: Ht 147.3 cm; Wt 67.9 kg
[~2025-03-02 06:34] MED LIST changes: -ASPI-1197 PO; +CHOL2000 PO; -CILO50TA2 PO; +CLOP75TA32 PO; +GABA-529 PO; -GLUC1TAB22 PO; +HYDR12.54 PO; +ISOS30TA92 PO; +METF-446 PO; +METO5TAB2 PO; -NIFE-40 PO; +OLME20TA68 PO; -PANT40TA54 PO; -PREG100C56 PO
[2025-03-02] MEDS: 0.9%NACL 1000ML 1,000 ML IV SCH (08:01)
[2025-03-02] MEDS ORDERED: LIDOCAINE HCL 400MG/20ML VIAL ONE (08:27)
[2025-03-02] MEDS ORDERED: IOHEXOL-350 50ML VIAL IV ONE (08:27)
[2025-03-02] MEDS ORDERED: IOHEXOL 350 MG/ML 100ML INFUS..BTL IV ONE ×2 (08:27→10:17)
[2025-03-02] MEDS ORDERED: HEParin-NS 1,000 UNIT/500 ML 1,000 ML IV ONE (08:28)
[2025-03-02] MEDS ORDERED: NITROGLYCERIN 50MG VIAL ONE (08:28)
[2025-03-02] MEDS ORDERED: HEParin 10,000 UNIT/10ML (1,000 UNIT/ML) VIAL ONE (08:28)
[2025-03-02] MEDS ORDERED: MIDAZOLAM HCL 1 MG/ML 2ML VIAL ONE (08:48)
[2025-03-02] MEDS ORDERED: FENTanyl CITRate PF 50 MCG/1 ML 2ML VIAL ONE (08:48)
[2025-03-02] MEDS ORDERED: ATROPINE 1MG SYG IVP ONE (09:01)
[2025-03-02] MEDS ORDERED: hydrALAZine 20MG/ML VIAL ONE (10:00)
[2025-03-02] MEDS ORDERED: BIVALIRUDIN 250 MG/VIAL IV ONE (10:02)
[2025-03-02] MEDS ORDERED: cloPIDOgrel 300MG TAB ONE (10:04)
[2025-03-02] MEDS ORDERED: ASPIRIN 325MG EC TAB PO ONE (10:04)
[2025-03-02] MEDS ORDERED: HEParin-NS 1,000 UNIT/500 ML 500 ML IV ONE (10:07)
[2025-03-02] MEDS ORDERED: LAbetaLOL 20MG SYG IV ONE (10:22)
[2025-03-02] MEDS ORDERED: ASPI-1005 PO (11:16)
--- NOTE | 2025-03-02 11:29 | PRN ---
DATE OF PROCEDURE: 03/02/2025 PROCEDURE PERFORMED: LEFT HEART CATHETERIZATION, LEFT VENTRICULOGRAM, LEFT AND RIGHT SELECTIVE CORONARY ANGIOGRAM, INJECTION OF SAPHENOUS VEIN GRAFT TO THE DIAGONAL ONE, INJECTION OF SAPHENOUS VEIN GRAFT TO THE OM3, REBOLLEDO GRAFT INJECTION, IVUS TO MID LAD, PROXIMAL LAD, AND LEFT MAIN, PTCA/CHRIS TO THE P ROXIMAL TO MID LAD WITH A 2.75 X 15 MM RICH FRONTIER CHRIS, RIGHT COMMON FEMORAL ANGIOGRAM, PERCLOSE SUTURE CLOSURE OF THE RIGHT COMMON FEMORAL ARTERY, AND CONSCIOUS SEDATION TENNIS DESK TEAM MEMBER: Sariah Gar MD, [facility] INDICATION: Recurrent angina post bypass, abnormal Lexiscan Cardiolite stress test 06/03/2024 demonstrating severe anteroapical ischemia and gated ejection fraction of 79%. PROCEDURE NOTE: After informed consent was obtained the patient was prepped and draped in the usual sterile fashion. A 6 [place] arterial sheath was inserted in the right femoral artery using a micropuncture technique with ultrasound guidance with front wall, first pass puncture. This was performed after fluoroscopic identification of bony landmarks to facilitate a more accurate puncture of the right common femoral artery. The arterial sheath was aspirated and flushed. A 6 [place] pigtail catheter was then advanced over a J-tipped guidewire to the asc ending aorta and was prolapsed into the left ventricle. The catheter was aspirated and flushed and pressure measurements were obtained. A left ventriculogram was then performed in a 30 CHAMPION projection. A pullback procedure was then performed, and this catheter was removed over a J-tipped guidewire. A 6F JL-4 was then advanced to the ascending aorta over a J-tipped guidewire, wa s aspirated and flushed, and was used for selective left coronary angiograms in multiple obliquities. A JR-4 was advanced in a similar fashion to the ascending aorta over a J-tipped guidewire and was used for selective right coronary angiograms in multiple obliquities, and was also used for injection of the saphenous vein graft to the diagonal one, saphenous vein graft to the OM3, and a 6F IMT catheter was used for injection of the REBOLLEDO graft with findings as outlined below. PERCUTANEOUS CORONARY INTERVENTION: A six [place] JL4 guiding catheter provided adequate support for the intervention. A 300 cm Runthrough wire was used for the intervention and provided good support. A [place] eye IVUS catheter was used to assess vessel size and plaque characteristics in the proximal to mid LAD and left main. A 2.75 x 12 mm NC Euphora RX balloon was used to pre dilate the lesion and resulted in full lesion expansion. A 2.75 x 15 rich [place] CHRIS was then deployed at 14 atmospheres and a post deployment inflation again at 14 atmospheres resulted in no residual stenosis (minus 10%). There was no edge dissection or distal embolization noted. A right common femoral angiogram was performed to assess suitability for Perclose suture closure and the Perclose device was deployed in standard fashion. Perclose suture closure was successful without bleeding or hematoma. The patient tolerated the procedure well and was returned to the holding area in stable condition. FINDINGS: LEFT HEART HEMODYNAMICS: The patient's LVEDP prior to LV-gram was 19 mm of mercury and after LV-gram 15 mm of mercury. There was no aortic valve gradient on pullback. LEFT VENTRICULOGRAM: A left ventriculogram in a 30 degree CHAMPION projection demonstrated mild mid anterior hypokinesis with an overall LVEF of greater than 65%. There was no angiographic MR. CORONARY ANGIOGRAM: LEFT MAIN: The left main had diffuse tubular 40% stenosis without dampening unless the catheter was deep seated. IVUS also demonstrated what appeared to be a 40% stenosis. LEFT ANTERIOR DESCENDING: The LAD had a 40% tubular ostial stenosis followed by a 90% stenosis extending across the diagonal one with an estimated length of 10 mm. The apical LAD was totally occluded in the apical LAD was supplied by a patent REBOLLEDO to the apical LAD which provided excellent filling and surgical revascularization. There was a 30% distal anastomosis stenosis only. The diagonal one had an 80% ostial stenosis and was a 1.5 mm diagonal. There was a patent 1.5 mm saphenous vein graft to the diagonal one with a 90% diffuse distal anastomosis stenosis. This appeared to be small for stenting and medical management for this lesion was recommended. LEFT CIRCUMFLEX: The left circumflex was nondominant and had a 30% ostial stenosis followed by an 80% mid stenosis. The OM1 had a 75% stenosis. There was a widely patent saphenous vein graft to the OM3 which provided excellent surgical revascularization to the left circumflex system. RAMUS INTERMEDIATE BRANCH: There was a normal small ramus intermediate branch. RIGHT CORONARY ARTERY: The right coronary artery was dominant and had a 50% ostial stenosis followed by to 30% tubular stenoses in the proximal to mid RCA. The ongoing mid and distal RCA, PDA, and posterolateral branches were normal. IMPRESSION: 1. Recurrent angina status post remote bypass surgery 2. Severe anteroapical ischemia on Lexiscan Cardiolite stress test 06/03/2024 3. Mild mid anterior hypokinesis with overall LVEF greater than 65%. 4. 3/3 grafts patent with patent REBOLLEDO to the apical LAD (which does not provide retrograde filling of the proximal to mid LAD due to occlusion of the distal LAD) 5. Patent saphenous vein graft to a small diagonal one with 90% distal anastomosis stenosis, and a 1.5 mm diagonal one vessel, felt best managed medically 6. Large patent saphenous vein graft to the OM3 with excellent surgical revascularization of the left circumflex system 7. Successful PTCA and stenting of the proximal to mid LAD with a 2.75 x 15 mm rich [place] CHRIS to a-10% residual. RECOMMENDATION: Continue risk factor modification Dual antiplatelet therapy to complete one year Continued antianginal therapy if angina persists only. COMPLICATIONS OF PROCEDURE: None, the patient tolerated the procedure well and was returned to his room in stable condition. HEMOSTASIS: Perclose suture closure successful without bleeding or hematoma. ESTIMATED BLOOD LOSS: 10 mL. CONTRAST TOTAL: 230 mL. SARIAH GAR MD Mar 02, 2025 11:29
[2025-03-02] MEDS ORDERED: DEXTROSE 50%-WATER 50 ML DISP.SYRIN IV PRN (11:30)
[2025-03-02] MEDS ORDERED: INSULIN humuLIN R 100 UNIT/ML 3ML SQ SCH (11:30)
[2025-03-02] MEDS ORDERED: GLUCAGON 1MG KIT 1 MG ML IM PRN (11:30)
--- NOTE | 2025-03-02 11:50 | NUR ---
URINARY: VOIDED 400 CC YELLOW COLOR URINE VIA BEDPAN WITHOUT DIFFICULTY.
--- NOTE | 2025-03-02 12:25 | NUR ---
NAUSEA: NOTIFIED OF PATIENT NAUSEATED AND ORDERS GIVEN.
[2025-03-02] MEDS: ondanSETRON 4MG INJ IVP ONE (12:32)
--- NOTE | 2025-03-02 13:30 | NUR ---
alteration in comfort: patient states nausea subside some. dr. dunlap made aware.
--- NOTE | 2025-03-02 14:25 | NUR ---
report: report given to lucien trejo rn
--- NOTE | 2025-03-02 16:35 | NUR ---
PT AND DAUGHTER GIVEN STENT CARD AND RX
--- NOTE | 2025-03-02 16:35 | NUR ---
PT AND DAUGHTER GIVEN VERBAL AND WRITTEN DISCHARGE INSTRUCTIONS. IV REMOVED SITE ASYMPTOMATIC. PT TAKEN OUT VIA WHEELCHAIR DAUGHTER DRIVING.
== END 2025-03-02 16:45 | disposition home or self-care (01) ==
LOC: DAH 06:34
PROVIDERS: ATTEND Internal Medicine Cardiovascular Disease
DX: R94.39 Abnormal result of other cardiovascular function study (principal); I25.119 Atherosclerotic heart disease of native coronary artery with unspecified angina pectoris; E11.9 Type 2 diabetes mellitus without complications; E78.5 Hyperlipidemia, unspecified; I73.9 Peripheral vascular disease, unspecified; I25.2 Old myocardial infarction; I25.5 Ischemic cardiomyopathy; I10 Essential (primary) hypertension; R93.1 Abnormal findings on diagnostic imaging of heart and coronary circulation; K21.9 Gastro-esophageal reflux disease without esophagitis; F32.A Depression, unspecified; Z95.1 Presence of aortocoronary bypass graft; Z79.899 Other long term (current) drug therapy; Z79.84 Long term (current) use of oral hypoglycemic drugs; Z79.82 Long term (current) use of aspirin; Z90.49 Acquired absence of other specified parts of digestive tract; Z98.49 Cataract extraction status, unspecified eye; Z90.710 Acquired absence of both cervix and uterus; Z82.49 Family history of ischemic heart disease and other diseases of the circulatory system; Z79.01 Long term (current) use of anticoagulants
CPT/HCPCS: 80048; 83880; 85025; 85610; 85730; 81003; 36415; 71045; 93005; 93459; 92978; 92979; 82948 ×2; 99156; 99157 ×5; C9600; Q9965; C1769 ×2; C1887; C1894 ×2; C1874; C1760; C1753; C1725; J3010; J3490 ×2; J7030; J0360; J2250; J2405; J1644 ×2; J0583; Q9967 ×3; A4215; A4222; A4221; A4663; A4216; A4606; A4223 ×3; 96360; 96361; J0461